=== PATIENT | female | born 1995 | race Caucasian/White ===

== ENCOUNTER 2018-02-27 10:29 | Emergency (ER) | payer OTHER | END 2018-02-27 11:27 | disposition home or self-care (01) | LOC: E/R 11:27 | DX: J06.9 Acute upper respiratory infection, unspecified (principal); H10.9 Unspecified conjunctivitis | CPT/HCPCS: 99283; Z7502 ==

== ENCOUNTER 2019-01-27 00:33 | Emergency (ER) | payer OTHER ==
[2019-01-27 04:10] LABS: URINE BLOOD (Dip) POC 3+ (NEGATIVE); URINE GLUCOSE (Dip) POC Negative (NEGATIVE); URINE KETONES (Dip) POC Negative (NEGATIVE); URINE LEUKOCYTE EST (Dip) POC Negative (NEGATIVE); URINE NITRITE (Dip) POC Negative (NEGATIVE); URINE TOTAL PROTEIN POC Negative (NEGATIVE)
[2019-01-27 04:10] LABS: URINE PH (Dip) POC 6.5 (5.0-8.5)
== END 2019-01-27 05:34 | disposition home or self-care (01) ==
LOC: FTE 00:33
DX: O20.9 Hemorrhage in early pregnancy, unspecified (principal); R10.2 Pelvic and perineal pain; Z3A.12 12 weeks gestation of pregnancy
CPT/HCPCS: 76801; 81003; 81025; 99284-25